=== PATIENT | female | born 1985 | race Caucasian/White ===

== ENCOUNTER 2023-09-16 16:20 | Emergency (ER) | payer OTHER, SELFPAY ==
--- NOTE | ~2023-09-16 | CT_ITS ---
EXAMINATION: CT brain wo con DATE: 09/16/2023 17:04 INDICATION: Headache for 3 days. Left arm pain for 2 days. TECHNIQUE: Computed tomography (CT) of the head was performed without intravenous contrast. The mA wa s adjusted according to patient size. Iterative reconstruction technique was employed. Exam dose: 68 1.00 mGy-cm total exam DLP. COMPARISON: None FINDINGS: No intracranial mass lesion or hemorrhage or cerebrovascular accident, midline shift or mas s effect is detected. Normal ventricular size. Normal jang-white matter differentiation. No subdural or epidural hematoma is detected. No fracture or bone destruction of the cranial vault. The mastoid air cells and included paranasal si nuses are normally developed and aerated. IMPRESSION: No significant abnormality Reviewed, dictated and finalized at [facility] Reviewed, dictated and finalized at [facility]. NEERING SPECIALIST IMPRESSION: No significant abnormality
--- NOTE | ~2023-09-16 | CT_ITS ---
EXAMINATION: CT cervical spine wo con DATE: 09/16/2023 17:05 INDICATION: Headache, left arm pain TECHNIQUE: Computed tomography (CT) of the cervical spine was performed without intravenous contrast. Automated exposure control and iterative reconstruction technique were employed. Exam dose: 369.73 mGy-cm total exam DLP. COMPARISON: None FINDINGS: There is reversal of cervical curvature which may be due to positioning and/or muscle spasm . C1 and C2 are normally aligned and the odontoid process is intact. No fracture or dislocation or lock ed facet or prevertebral soft tissue swelling. Cervical interspaces are preserved. No bony encroachme nt upon the cervical spinal canal or the cervical neural foramina.. IMPRESSION: Reversal of cervical curvature; otherwise negative Reviewed, dictated and finalized at [facility] Reviewed, dictated and finalized at [facility]. RAM WRITER
[2023-09-16 16:20] VITALS: BP 131/88; PULSE 104; RESP 18; TEMP 36.4; O2SAT 100
[2023-09-16] MEDS: SODIUM CHLORIDE 0.9% IV 1,000 ML 999 ML IV CONT (17:04)
[2023-09-16] MEDS: KETOROLAC 30 MG/ML VIAL (*BKC) IV PUSH (17:05)
--- NOTE | 2023-09-16 17:18 | ED.UPPEXIN ---
HPI - Extremity Injury (Upper) General Chief Complaint: Extremity Injury, Upper Stated Complaint: headache and left side pain Time Seen by Provider: 09/16/23 16:34 Source: patient Mode of arrival: ambulatory Limitations: no limitations History of Present Illness HPI narrative: patient presents with a headache and neck pain with radiation down into her left shoulder no known injuries does have migraines and this is little more intense that her typical migraines with no nausea or vomiting no fever chills no neck stiffness, the patient does describe chest pain that is reproducible with palpation and movement with no shortness of breaths no abdominal pain. Related Data Home Medications Medication Instructions Recorded Confirmed amitriptyline 50 mg tablet 50 mg PO HS 09/16/23 09/16/23 fluoxetine 60 mg tablet 60 mg PO DAILY 09/16/23 09/16/23 gabapentin 300 mg capsule 300 mg PO HS 09/16/23 09/16/23 meloxicam 15 mg tablet 15 mg PO DAILY 09/16/23 09/16/23 Allergies Allergy/AdvReac Type Severity Reaction Status Date / Time No Known Allergies Allergy Verified 09/16/23 16:34 Review of Systems Review of Systems: All systems reviewed & are unremarkable except as noted in HPI and below PMFSH Past Medical History Medical History Migraine Exam Const: General: healthy appearing Nutritional Appearance: well nourished Orientation/consciousness: patient oriented x3 HENMT: Head: normal to inspection Eyes: Conjunctivae: conjunctivae normal Pupils: Equal, round and reactive pupils present Neck: Neck: normal visual inspection, no lymphadenopathy and no meningeal signs Chest: Chest palpation & inspection: normal inspection of the chest and tenderness Other: reproducible left-sided chest discomfort with palpation and movement Resp: Effort & Inspection: normal respiratory effort Auscultation: clear to auscultation bilaterally Cardio: Rate: regular rate Rhythm: regular rhythm Skin: General skin exam: normal color Rashes: no rashes Neuro: General: patient oriented x3 and moves all extremities Extrem: General: normal to inspection Psych: Mental Status: mental status grossly normal Affect: normal affect Course Course Emergency Course: patient received Toradol IV 30mg along with IV fluids after reassessment patient's pain level is improved CT scan neck CT performed showed no acute abnormalities. Vital Signs Vital signs: Vital Signs Temperature 36.4 C L 09/16/23 16:20 Pulse Rate 104 H 09/16/23 16:20 Respiratory Rate 18 09/16/23 16:20 Blood Pressure 131/88 09/16/23 16:20 Pulse Oximetry 100 09/16/23 16:20 Oxygen Delivery Room Air 09/16/23 16:20 Temperature 36.4 C L 09/16/23 16:20 Pulse Rate 104 H 09/16/23 16:20 Respiratory Rate 18 09/16/23 16:20 Blood Pressure 131/88 09/16/23 16:20 Pulse Oximetry 100 09/16/23 16:20 Oxygen Delivery Room Air 09/16/23 16:20 Critical Care Time Critical Care Time Critical Care Time: No Discharge Plan Discharge Clinical Impression: Cervical strain, Migraine Patient Disposition: Home, Self-Care Condition: Stable Instructions: Antibiotic Form, Cervical Strain (ED), Migraine Headache (ED) Additional Instructions: take medicine as prescribed and follow-up with primary care physician if symptoms persist or worsen. Prescriptions: New naproxen 500 mg tablet 500 mg PO BID Qty: 14 0RF No Action meloxicam 15 mg Tablet 15 mg PO DAILY amitriptyline 50 mg Tablet 50 mg PO HS gabapentin 300 mg Capsule 300 mg PO HS fluoxetine 60 mg Tablet 60 mg PO DAILY Follow-up/Referrals: Isatu,Shanika Chandler MD [Primary Care Provider] - Time of Disposition: 17:23
[2023-09-16 17:35] VITALS: BP 124/86; PULSE 96; RESP 14; O2SAT 100
--- NOTE | 2023-09-16 17:38 | PC.NURSE ---
pt given toradol and ns 1000mls for pain 08/10 states she wants an MRI and informed that it is done out pt for her to follow up with her primary pt states we have done nothing for her IV MEDS AND CT COMPLETED
== END 2023-09-16 17:50 | disposition home or self-care (01) ==
LOC: CHSED 17:24
PROVIDERS: Emergency Provider Emergency Medicine; PCP Family Medicine
DX: S16.1XXA Strain of muscle, fascia and tendon at neck level, initial encounter (principal); G43.909 Migraine, unspecified, not intractable, without status migrainosus; Z79.899 Other long term (current) drug therapy; Z79.1 Long term (current) use of non-steroidal anti-inflammatories (NSAID); X58.XXXA Exposure to other specified factors, initial encounter
CPT/HCPCS: 70450; 72125; 96361; 96374; 99284; J1885; J7030

== ENCOUNTER 2023-11-29 13:30 | Emergency (ER) | payer OTHER, SELFPAY ==
[2023-11-29] VITALS (7 sets, daily range): BP systolic 116–145; BP diastolic 75–91; PULSE 86–113; RESP 14–20; TEMP 36.7–37; O2SAT 96–100
--- NOTE | ~2023-11-29 | XR_ITS ---
XR chest 1V portable DATE: 11/29/2023 14:11 INDICATION: Left chest pain TECHNIQUE: Portable upright AP chest on 11/29/2023 at 1416 hours COMPARISON: None FINDINGS: Normal heart size. No hilar or mediastinal enlargement. No pulmonary infiltrate or consolid ation, pleural effusion or pulmonary vascular congestion or pneumothorax. IMPRESSION: No active cardiopulmonary disease Reviewed, dictated and finalized at [facility]. E DELIVERY CLERK
--- NOTE | 2023-11-29 13:51 | ECG_ITS ---
Measurements Intervals [place] Rate: 99 P: 40 MT: 134 QRS: 54 QRSD: 90 T: 22 QT: 333 QTc: 429 Interpretive Statements SINUS RHYTHM NONSPECIFIC ST-T WAVE ABNORMALITY- DIFFUSE LEADS BASELINE ARTIFACT- I, III, AVR, AVL, AVF, V4-V6 BORDERLINE ECG NO PREVIOUS ECG AVAILABLE FOR COMPARISON Electronically Signed On 11-29-2023 14:50:26 RN ADVICE by Onur Olvera D.O.
--- NOTE | 2023-11-29 13:53 | ED.GENADULT ---
HPI - General Adult General Chief complaint: Headache Stated complaint: migraine Time Seen by Provider: 11/29/23 13:44 History of Present Illness HPI narrative: Lou is a 37F with a PMH of chronic headaches that presented to the ED with continued headaches and chest pain. She has had the same circumferential headaches for over 3 months and meds are not helping. She has reportedly had normal CTs and MRI of the brain (CT brain was normal here on 09/16). It is associated with with nausea, photophobia and lightheadedness. She has had chronic chest pain with the headache as well. For several hours she has had the same chest pain radiating to the left arm. It was worse when she walked in and it is associated with lightheadedness and nausea. Related Data Home Medications Medication Instructions Recorded Confirmed amitriptyline 50 mg tablet 100 mg PO HS 09/16/23 11/29/23 fluoxetine 60 mg tablet 40 mg PO DAILY 09/16/23 11/29/23 gabapentin 300 mg capsule 300 mg PO TID 09/16/23 11/29/23 Allergies Allergy/AdvReac Type Severity Reaction Status Date / Time No Known Allergies Allergy Verified 11/29/23 13:42 Review of Systems Review of Systems: All systems reviewed & are unremarkable except as noted in HPI and below PMFSH Past Medical History Medical History Migraine Exam Const: General: cooperative, healthy appearing, comfortable, no acute distress, well developed, alert, awake and Physically active Orientation/consciousness: oriented to person, oriented to place and oriented to time Other: Lou was lying in bed with her eyes covered. HENMT: Head: normal to inspection, normocephalic and atraumatic Ears: hearing grossly normal bilaterally and external ears normal Face/Nose/Sinus: Normal external nose present Eyes: General: appearance normal, both eyes and all related structures Periorbital: periorbital findings normal Sclera: sclerae normal Pupils: Equal, round and reactive pupils present Neck: Neck: normal visual inspection Chest: Chest palpation & inspection: normal inspection of the chest Resp: Effort & Inspection: normal respiratory effort, able to speak in complete sentences and no respiratory distress Auscultation: clear to auscultation bilaterally Cardio: Jugular venous distension: no JVD Rate: regular rate Rhythm: regular rhythm GI: Inspection: normal to inspection GI Palp: Yes Soft to palpation Auscultation: normal bowel sounds Skin: General skin exam: normal color and no rashes or lesions noted Neuro: General: oriented to person, oriented to place and oriented to time Cranial nerves: Yes Equal, round and reactive pupils present Speech: normal speech Gait exam (Neuro): Normal gait present Other: Normal finger to nose test. Normal strength in the upper extremities. Extrem: General: normal to inspection Course Course Emergency Course: Ordered labs, EKG, CXR, fluids, benadryl and compazine XR chest 1V portable DATE: 11/29/2023 14:11 INDICATION: Left chest pain? TECHNIQUE: Portable upright AP chest on 11/29/2023 at 1416 hours? COMPARISON: None? FINDINGS: Normal heart size. No hilar or mediastinal enlargement. No pulmonary infiltrate or consolidation, pleural effusion or pulmonary vascular congestion or pneumothorax.? IMPRESSION: No active cardiopulmonary disease? EKG showed sinus rhythm with a rate of 99, normal axis and no ST elevation/depression Labs are unremarkable Vital Signs Vital signs: Vital Signs Temperature 98.1 F 11/29/23 13:33 Pulse Rate 101 H 11/29/23 13:33 Respiratory Rate 20 11/29/23 13:33 Blood Pressure 133/82 11/29/23 13:33 Pulse Oximetry 99 11/29/23 13:33 Oxygen Delivery Room Air 11/29/23 13:33 Temperature 98.1 F 11/29/23 13:33 Pulse Rate 101 H 11/29/23 13:33 Respiratory Rate 20 11/29/23 13:33 Blood Pressure 133/82 11/29/23 13:33 Pulse Oximetry 99 11/29/23 13:33
[2023-11-29 14:14] LABS: Basophils Absolute Auto 0.01 K/mm3 (0.00-0.10); Basophils Percent Auto 0.1 % (0.0-1.0); Eosinophils Absolute Auto 0.16 K/mm3 (0.02-0.50); Eosinophils Percent Auto 2.4 % (1.0-6.0); Hemoglobin 13.4 g/dL (12.0-15.0); Immature Granulocyte Absolute 0.02 K/mm3 (0.00-0.00); Immature Granulocyte Percent A 0.3 % (0.0-0.0); Lymphocytes Absolute Auto 2.26 K/mm3 (1.10-4.50); Lymphocytes Percent Auto 33.8 % (18.0-42.0); Mean Corpuscular HGB Conc 31.9 g/dL (32.0-36.0); Mean Corpuscular Hemoglobin 26.8 pg (27.0-31.0); Mean Platelet Volume 9.7 fl (9.2-11.8); Monocytes Absolute Auto 0.31 K/mm3 (0.10-0.90); Monocytes Percent Auto 4.6 % (2.0-11.0); Neutrophils Absolute Auto 3.9 K/mm3 (1.7-7.2); Neutrophils Percent Auto 58.8 % (50.0-70.0); Platelet Count Result 263 K/mm3 (150-420); Red Cell Distribution Width 12.8 % (11.6-14.4); White Blood Count 6.7 K/mm3 (4.8-10.8)
[2023-11-29 14:29] LABS: Prothrombin Time 10.9 Seconds (9.50-12.10)
[2023-11-29 14:34] LABS: Troponin I 4.2 ng/L (0.00-60.4)
[2023-11-29] MEDS: SODIUM CHLORIDE 0.9% IV 1,000 ML 999 ML IV CONT (14:34)
[2023-11-29] MEDS: diphenhydrAMINE HCl INJ 50 MG/ML VIAL IV PUSH (14:35)
[2023-11-29] MEDS: PROCHLORPERAZINE EDISYLATE 10 MG/2 ML VIAL IV PUSH (14:35)
[2023-11-29 14:38] LABS: Alanine Aminotransferase 22 U/L (14-59); Albumin Level 3.5 g/dL (3.4-5.0); Alkaline Phosphatase 85 U/L (46-116); Anion Gap 7 mmol/L (8-16); Aspartate Amino Transferase 12 U/L (15-37); Bilirubin,Total 0.3 mg/dL (0.00-1.00); Blood Urea Nitrogen 9 mg/dL (7-18); Calcium 8.7 mg/dL (8.5-10.1); Carbon Dioxide 30 mmol/L (21-32); Chloride 104 mmol/L (98-108); Estimated CRCL calculation 96 ml/min; Estimated Glomerular Filt Rate > 60; Glucose 114 mg/dL (70-99); NT Pro B Type Natriuretic Pept 23 pg/mL (0-125); Osmolality Calculated 291 mOsm/kg (285-295); Potassium 3.9 mmol/L (3.5-5.1); Sodium 141 mmol/L (136-145); Total Protein 7.4 g/dL (6.4-8.2)
== END 2023-11-29 15:50 | disposition home or self-care (01) ==
PROVIDERS: Emergency Provider Family Medicine; PCP Family Medicine
DX: R51.9 Headache, unspecified (principal); R07.9 Chest pain, unspecified; Z79.899 Other long term (current) drug therapy
CPT/HCPCS: 36415; 71045; 80053; 83880; 84484; 85025; 85610; 93005; 96361; 96374; 96375; 99284; J0780; J1200; J7030